=== PATIENT | female | born 2000 | race Hispanic/Latino ===

== ENCOUNTER 2020-04-02 07:22 | Inpatient (IN) | payer OTHER ==
[2020-04-02] MEDS ORDERED: METHYLERGONOVINE 0.2MG/ML AMP IM PRN (16:55)
[2020-04-02] MEDS ORDERED: BUTORPHANOL 1 MG/ML INJ IV PRN (16:55)
[2020-04-02] MEDS ORDERED: CARBOPROST TROME 250 MCG/ML IM PRN (16:55)
[2020-04-02] MEDS ORDERED: PROMETHAZINE INJ 25 MG/ML AMP IM PRN (16:55)
[2020-04-02] MEDS ORDERED: Ringers Lactate 1,000 ML IV PRN (16:55)
[2020-04-02] MEDS ORDERED: Ringers Lactate 1,000 ML IV SCH (17:00)
[2020-04-02] MEDS ORDERED: miSOPROStoL 100 MCG TAB VAG SCH (17:00)
[2020-04-02] MEDS ORDERED: OXYTOCIN/LR 20 UNIT/1,000 ML BAG IV SCH (17:00)
[2020-04-02 17:38] VITALS: BMI 33.3
[2020-04-02 17:44] LABS: Absolute Lymphocytes (CBC) 1.1 K/uL (0.7-4.9); Basophils % 0.3 % (0-1.3); Lymphocytes % 13.3 % (15.3-44.8); MPV 10.9 fL (7.6-11.3)
[2020-04-02 17:44] LABS: Urine Appearance CLOUDY; Urine Bilirubin NEGATIVE (NEG); Urine Blood NEGATIVE (NEG); Urine Color YELLOW; Urine Glucose NEGATIVE (NEG); Urine Protein NEGATIVE (NEG)
[2020-04-02 17:49] LABS: Urine Microscopic Reflex ORDER UMIC
[2020-04-02 18:15] LABS: Urine Amorphous Sediment 3+ /HPF (NONE SEEN); Urine Bacteria >50 /HPF (<20); Urine Culture Reflex Order REFLEXED; Urine RBC <5 /HPF (NONE SEEN)
[2020-04-02] MEDS ORDERED: INFLUENZA VACCINE (for 3y+) 0.5 ML DOSE IMVAC ONE (21:00)
--- NOTE | 2020-04-02 21:14 | PREOPHP ---
Date of Admission: 04/02/2020 Annmarie Santos is a 19-year-old primigravida 39 weeks 2 days, Rh positive, immune to rubella , negative beta strep screen, negative COVID status. Cervix is 1.5 cm, 50% effaced, vertex, -1 stati on. Cytotec 50 mcg inserted. This has been thoroughly discussed with the patient in the office on s everal occasions and again today about pros and cons of Cytotec and risks factors. Complete labor ta lk given to the patient and family. We will insert 50 mcg every 6 hours for 3 doses and then tomorro w start Pitocin induction unless the patient is already in active labor. FHT is normal, reactive on the monitor. Blood pressures have actually moderated since the office. Mild edema and protein in th e urine in the office, but urine specimen is pending here. We will decide on whether or not to give magnesium sulfate if the patient becomes full-blown preeclamptic as the labor progresses. BRISEIDA/BRENDA Voice ID: [id number]
[2020-04-02 22:41] LABS: RPR (Rapid Plasma Reagin) NON-REACT (NON-REACT)
[2020-04-03] MEDS ORDERED: LIDOCAINE 1% MPF 30 ML VIAL ONE (06:04)
[2020-04-03] MEDS ORDERED: CARBOPROST TROME 250 MCG/ML IM ONE (06:05)
[2020-04-03] MEDS ORDERED: METHYLERGONOVINE 0.2MG/ML AMP IM ONE (06:05)
[2020-04-03] MEDS ORDERED: DOCUSATE NA/SENNA CONC 1 TAB PO PRN (06:17)
[2020-04-03] MEDS ORDERED: IBUPROFEN 200 MG TAB PO PRN (06:17)
[2020-04-03] MEDS ORDERED: DIPHENHYDRAMINE 25 MG TAB/CAP PO PRN (06:17)
[2020-04-03] MEDS ORDERED: Oxycodone HCl/Acetaminophen 1 TAB TAB PO PRN ×2 (06:17)
[2020-04-03] MEDS ORDERED: BISACODYL 10 MG RECTAL SUPP PR PRN (06:17)
[2020-04-03] MEDS ORDERED: ACETAMINOPHEN 500 MG TAB PO PRN (06:17)
[2020-04-03] MEDS ORDERED: OXYTOCIN/LR 20 UNIT/1,000 ML BAG IV SCH (07:00)
--- NOTE | 2020-04-03 08:13 | OP ---
Surgeon: James Boyd MD Annmarie Santos is a 19-year-old primigravida 39 weeks 2 days, had Cytotec inserted 50 mcg overnight , went to a very active labor pattern. We used no analgesics, whatsoever. Lamaze breathing techniqu es. Second stage of 20-30 minutes. Spontaneous vaginal delivery of a 7 pounds 7 ounces female, Apga rs 9 and 9. No episiotomy. No lacerations worthy of suturing. Schultze delivery of the placenta. Estimated blood loss 300 mL or less. Tolerated all procedures well. Rh positive. Immune to Rubella . COVID negative. Strep negative. Final Diagnoses: Term intrauterine at 39 weeks 2 days, Cytotec for cervical ripening, labo r induction, vaginal delivery, natural childbirth. BRISEIDA/NATANL Voice ID: [id number] Report ID: [id number]
[2020-04-03] MEDS ORDERED: Ringers Lactate 2,000 ML IV ONE (11:45)
[2020-04-04 08:17] VITALS: BP 102/64; TEMP 97.9; O2SAT 99
[2020-04-04] MEDS ORDERED: Tdap (Diph,Pertuss(Acell),Tet Vac) 0.5 ML SYR IMVAC ONE (08:55)
[2020-04-04] MEDS ORDERED: INFLUENZA VACCINE (for 3y+) 0.5 ML DOSE IMVAC ONE ×2 (09:58→10:00)
--- NOTE | 2020-04-04 10:32 | DS ---
Annmarie Santos is 19-year-old primigravida, at 39 weeks and 3 days at time of delivery. Had Cytote c inserted 50 mcg, went into a very active labor thereafter and needed no other stimulation. Short s econd stage, delivered of a 7 pounds 7 ounces female, Apgars 9 and 9. No episiotomy. No laceration. Schultze delivery of the placenta, which was inspected and noted to be intact and normal. Less yael n 300 mL blood loss. Rh positive, immune to Rubella. COVID negative. Strep negative. ; afebrile, ambulating, and voiding. Lochia is normal. Will be dismissed later this morning to report back to my office in 6 weeks for followup. To report any temperature elevation of 100 degrees or gr eater, severe pain, heavy bleeding, or any other type of abnormality. Offered Tdap and a flu shot. Requests no analgesics, will take Motrin. Final Diagnoses: Term intrauterine , 39 weeks 2 days, Cytotec insertion, vaginal delivery. Immunizations offered. BRISEIDA/BRENDA Voice ID: [id number] Report ID: [id number]
[2020-04-09 15:39] LABS: HBsAG Nonreactive
== END 2020-04-04 10:45 | disposition home or self-care (01) | DRG 807 ==
LOC: 2ND-WC 17:00
PROVIDERS: ADMIT Specialist; ATTEND Specialist
PROC: 10E0XZZ Delivery of Products of Conception, External Approach (ICD-10-PCS; principal; 2020-04-03)
PROC: 3E0P7VZ Introduction of Hormone into Female Reproductive, Via Natural or Artificial Opening (ICD-10-PCS; 2020-04-03)
DX: O80 Encounter for full-term uncomplicated delivery (principal); Z37.0 Single live birth; Z3A.39 39 weeks gestation of pregnancy; Z20.828 Contact with and (suspected) exposure to other viral communicable diseases; Z23 Encounter for immunization
CPT/HCPCS: 36415; 81003; 81015; 85025; 86592; 86850; 86900; 86901; 87086; 87088; 87340; 90471; 90715; J2210; J2590; J7120; Q2035; U0003